=== PATIENT | female | born 1975 | race Hispanic/Latino ===

== ENCOUNTER 2021-06-26 10:41 | Emergency (ER) | payer BC ==
[~2021-06-26] VITALS: Ht 162.6 cm; Wt 89.8 kg
[2021-06-26 10:52] VITALS: BP 134/78
[2021-06-26] MEDS ORDERED: ACET-66 PO (12:38)
== END 2021-06-26 13:10 | disposition home or self-care (01) ==
LOC: EDH 10:41
DX: M25.531 Pain in right wrist (principal); M25.532 Pain in left wrist; Z86.718 Personal history of other venous thrombosis and embolism
CPT/HCPCS: 93970

== ENCOUNTER 2023-08-15 06:38 | Day surgery (SDC) | payer BC ==
[2023-08-10 15:22] VITALS: BP 117/74; PULSE 73; RESP 16
[2023-08-10 15:30] LABS: BASOPHILS # (AUTO) 0.05 K/uL (0.00-0.20); BASOPHILS % (AUTO) 0.8 % (0.0-5.0); EOSINOPHILS # (AUTO) 0.18 K/uL (0.00-0.70); EOSINOPHILS % (AUTO) 2.8 % (0.0-8.0); HEMATOCRIT 38.5 % (36-48); IMMATURE GRANULOCYTE ABSOLUTE 0.02 K/uL (0-1); LYMPHOCYTES # (AUTO) 1.4 K/uL (1.0-4.8); LYMPHOCYTES % (AUTO) 20.9 % (21.0-51.0); MEAN CORPUSCULAR HEMOGLOBIN 28.9 pg (27.0-33.0); MEAN CORPUSCULAR HGB CONC 34.8 g/dL (32.0-36.0); MEAN CORPUSCULAR VOLUME 83.2 fL (79-99); MONOCYTES # (AUTO) 0.5 K/uL (0.1-1.0); NEUTROPHILS # (AUTO) 4.4 K/uL (1.8-7.7); NEUTROPHILS % (AUTO) 68.2 % (40.0-77.0); PLATELET COUNT (AUTO) 289 K/uL (130-400); RED BLOOD CELL COUNT(AUTO) 4.63 MIL/uL (4.00-5.50); WHITE BLOOD COUNT (AUTO) 6.5 K/uL (4.8-10.8)
[2023-08-10 15:40] LABS: POTASSIUM 3.2 mmol/L (3.5-5.1)
[2023-08-10 15:42] LABS: INR <= 0.93 (0.85-1.15); PROTHROMBIN TIME 10.4 SEC (9.6-11.6)
[2023-08-10 15:43] LABS: PARTIAL THROMBOPLASTIN TIME 29.2 SEC (26.3-35.5)
[~2023-08-15] VITALS: Ht 162.6 cm; Wt 84.3 kg
[2023-08-15] VITALS (16 sets, daily range): BP systolic 97–124; BP diastolic 39–79; PULSE 51–93; RESP 11–17
[~2023-08-15 06:38] MED LIST: CALC-190 PO; CHLO25TA3 PO; LACTATED RINGERS 1000ML 1,000 ML IV SCH; LETR2.5T7 PO; LEVO150T11 PO; LISI20TA24 PO; LORA10TA7 PO
[2023-08-15] MEDS ORDERED: CEFAZOLIN SODIUM 2 GM VIAL ONE (06:43)
[2023-08-15] MEDS ORDERED: MIDAZOLAM HCL 1 MG/ML 2ML VIAL ONE (06:58)
[2023-08-15] MEDS ORDERED: ONDANSETRON 4MG INJ ONE (06:58)
[2023-08-15] MEDS ORDERED: PROPOFOL 10 MG/ML 20ML VIAL IV ONE (06:58)
[2023-08-15] MEDS ORDERED: ROCURONIUM BROMIDE 10MG/1ML 5ML VL ONE (06:59)
[2023-08-15] MEDS ORDERED: FENTANYL CITRATE PF 50 MCG/1 ML 2ML VIAL ONE ×2 (06:59→07:45)
[2023-08-15] MEDS ORDERED: LIDOCAINE HCL 1% 20 ML VIAL ONE (07:27)
[2023-08-15] MEDS: CEFAZOLIN SODIUM 1 GM VIAL IVPB PRN (07:40)
[2023-08-15] MEDS: BUPIVACAINE/PF 0.25% 30ML VIAL IJ ONE (07:47)
[2023-08-15] MEDS ORDERED: DOCU-116 PO (08:00)
[2023-08-15] MEDS ORDERED: TRAM50TA4 PO (08:00)
[2023-08-15] MEDS: KETOROLAC 30MG VIAL (30MG/ML) ONE (08:50)
[2023-08-15] MEDS: LACTATED RINGERS 1000ML 1,000 ML IV ONE (09:59)
== END 2023-08-15 10:00 | disposition home or self-care (01) ==
LOC: DAH 06:38
PROVIDERS: ATTEND Surgery
DX: Z45.2 Encounter for adjustment and management of vascular access device (principal); C50.112 Malignant neoplasm of central portion of left female breast; E03.9 Hypothyroidism, unspecified; M06.9 Rheumatoid arthritis, unspecified; R53.82 Chronic fatigue, unspecified; E78.00 Pure hypercholesterolemia, unspecified; I10 Essential (primary) hypertension; E06.3 Autoimmune thyroiditis; E55.9 Vitamin D deficiency, unspecified; Z17.0 Estrogen receptor positive status [ER+]; Z13.71 Encounter for nonprocreative screening for genetic disease carrier status; Z51.11 Encounter for antineoplastic chemotherapy; Z80.0 Family history of malignant neoplasm of digestive organs; Z86.718 Personal history of other venous thrombosis and embolism; Z87.891 Personal history of nicotine dependence; Z79.890 Hormone replacement therapy; Z79.899 Other long term (current) drug therapy; Z98.890 Other specified postprocedural states
CPT/HCPCS: 36590; 80048; 85025; 85610; 85730; 86850; 86900; 86901; 81025; 36415; A6260; A4663; J7030; A4452; J7120; J3010 ×2; J0665; J3490; J2250; J2704; J2405; J1885; J0690; A4930 ×3; A4215; A4223; A4213; A4222; A4221; A4216; A4600

== ENCOUNTER → 2024-12-23 | Emergency (ER) | payer BC ==
[~2024-12-23] VITALS: Ht 162.6 cm; Wt 90.7 kg
[~2024-12-23] MED LIST changes: +DOCU-116 PO; -LACTATED RINGERS 1000ML 1,000 ML IV SCH; +TRAM50TA4 PO
[2024-12-23 14:05] LABS: IMMATURE GRANULOCYTE ABSOLUTE 0.02 K/uL (0-1); NUCLEATED RED BLOOD CELLS 0.0 % (0.0-0.19); PLATELET COUNT (AUTO) 275 K/uL (130-400); RED BLOOD CELL COUNT(AUTO) 5.13 MIL/uL (4.00-5.50); RED CELL DISTRIBUTION WIDTH 12.0 % (11.0-15.5); WHITE BLOOD COUNT (AUTO) 4.7 K/uL (4.8-10.8)
[2024-12-23 14:29] LABS: ASPARTATE AMINOTRANSFERASE 16.0 U/L (10-37); CREATININE 1.0 mg/dL (0.5-1.0); GLOMERULAR FILTR. RATE CALC 69.0 mL/min (>90); GLUCOSE,RANDOM 101.0 mg/dL (70-105); SODIUM SERUM 139.0 mmol/L (136-145); TOTAL PROTEIN, SERUM 7.2 g/dL (6.0-8.3); UREA NITROGEN, BLOOD 14.0 mg/dL (7-18)
--- NOTE | 2024-12-23 14:38 | HMCIMG ---
EXAM: CR Chest, 1 View. CLINICAL HISTORY: Shortness of breath COMPARISON: None provided. FINDINGS: LUNGS: The lungs show no infiltrate or other acute finding. PLEURAL SPACES: No evidence of pleural effusion or pneumothorax. MEDIASTINUM: The cardiomediastinal silhouette is within normal limits. BONES: No acute osseous abnormality. IMPRESSION: No acute cardiopulmonary pathology is evident. /[place]
[2024-12-23 14:44] LABS: AMPHET/METH SCREEN,URINE NEGATIVE (NEGATIVE); BARBITURATE SCREEN, URINE POSITIVE (NEGATIVE); CANNABINOID SCREEN,URINE NEGATIVE (NEGATIVE); COCAINE SCREEN,URINE NEGATIVE (NEGATIVE)
[2024-12-23 15:32] VITALS: BP 145/72; PULSE 82; RESP 18; TEMP 97.7; O2SAT 98
--- NOTE | 2024-12-23 15:34 | ERN ---
General Chief Complaint: Palpitations Stated Complaint: PALPITATION, ELEVATE BP Time Seen by MD: 13:32 History of Present Illness Initial Comments 49-year-old female came in for palpitation. Patient otherwise has no concerns. Allergies: Coded Allergies: No Known Allergies (Unverified Allergy, Unknown, 06/26/21) Home Meds Active Scripts Docusate Sodium (Colace) 100 Mg Capsule, 100 MG PO BID, #30 CAP 0 Refills Prov:IMANI MCDONNELL MD 08/15/23 Tramadol Hcl (Tramadol HCl) 50 Mg Tablet, 50 MG PO Q6HPRN PRN for PAIN, #10 TAB 0 Refills Prov:IMANI MCDONNELL MD 08/15/23 Reported Medications Calcium Carbonate/Vitamin D3 (Calcium + Vitamin D Tablet) 600 Mg Calcium-5 Mcg (200 Unit) Tablet, 1 EACH PO DAILY, TAB 08/10/23 Loratadine (Loratadine) 10 Mg Tablet, 10 MG PO DAILY, TAB 01/13/23 Letrozole (Letrozole) 2.5 Mg Tablet, 2.5 MG PO HS, TAB 01/13/23 Lisinopril (Lisinopril) 20 Mg Tablet, 20 MG PO DAILY, TAB 01/13/23 Chlorthalidone (Chlorthalidone) 25 Mg Tablet, 25 MG PO DAILY, TAB 01/13/23 Levothyroxine Sodium (Levothyroxine Sodium) 150 Mcg Tablet, 150 MCG PO DAILYBKFST, TAB 01/13/23 Past Medical History Past Medical History: DVT, Hypertension, Other Medical History Other: THYROID, HX OF BREAST CA Past Surgical History: Hysterectomy Surgical History Other: LEFT LUMPECTOMY ROS Dictation Palpitation Physical Exam General Appearance: (+) no apparent distress Neck: (+) normal inspection, (+) supple Respiratory: (+) chest non-tender, (+) lungs clear Heart: (+) regular, (+) no gallop Vascular: (+) normal peripheral pulse Gastrointestinal: (+) soft, (+) non-tender Results Laboratory and Microbiology Lab and Micro Result Laboratory Tests Test 12/23/24 13:43 12/23/24 14:18 White Blood Count 4.7 K/uL (4.8-10.8) L Red Blood Count 5.13 MIL/uL (4.00-5.50) Hemoglobin 14.5 g/dL (12.0-16.0) Hematocrit 42.2 % (36-48) Mean Corpuscular Volume 82.3 fL (79-99) Mean Corpuscular Hemoglobin 28.3 pg (27.0-33.0) Mean Corpuscular Hemoglobin Concent 34.4 g/dL (32.0-36.0) Red Cell Distribution Width 12.0 % (11.0-15.5) Platelet Count 275 K/uL (130-400) Mean Platelet Volume 9.4 fL (7.5-10.5) Immature Granulocyte % (Auto) 0.4 % (0-1) Neutrophils (%) (Auto) 68.6 % (40.0-77.0) Lymphocytes (%) (Auto) 20.1 % (21.0-51.0) L Monocytes (%) (Auto) 7.4 % (3.0-13.0) Eosinophils (%) (Auto) 2.7 % (0.0-8.0) Basophils (%) (Auto) 0.8 % (0.0-5.0) Neutrophils # (Auto) 3.2 K/uL (1.8-7.7) Lymphocytes # (Auto) 1.0 K/uL (1.0-4.8) Monocytes # (Auto) 0.4 K/uL (0.1-1.0) Eosinophils # (Auto) 0.13 K/uL (0.00-0.70) Basophils # (Auto) 0.04 K/uL (0.00-0.20) Absolute Immature Granulocyte (auto 0.02 K/uL (0-1) Nucleated Red Blood Cells 0.0 % (0.0-0.19) Sodium Level 139 mmol/L (136-145) Potassium Level 3.7 mmol/L (3.5-5.1) Chloride Level 101 mmol/L (101-111) Carbon Dioxide Level 30 mmol/L (21-32) Blood Urea Nitrogen 14 mg/dL (7-18) Creatinine 1.0 mg/dL (0.5-1.0) Glomerular Filtration Rate Calc 69 mL/min (>90) Random Glucose 101 mg/dL (70-105) Total Calcium 9.2 mg/dL (8.5-10.1) Total Bilirubin 0.3 mg/dL (0.2-1.0) Direct Bilirubin 0.1 mg/dL (0.0-0.3) Aspartate Amino Transf (AST/SGOT) 16 U/L (10-37) Alanine Aminotransferase (ALT/SGPT) 22 U/L (12-78) Alkaline Phosphatase 58 U/L (50-136) Troponin I High Sensitivity 4 ng/L (4-50) Total Protein 7.2 g/dL (6.0-8.3) Albumin 3.8 g/dL (3.5-5.0) Urine Opiates Screen NEGATIVE (NEGATIVE) Urine Barbiturates Screen POSITIVE (NEGATIVE) H Urine Phencyclidine Screen NEGATIVE (NEGATIVE) Urine Amphetamines Screen NEGATIVE (NEGATIVE) Urine Benzodiazepines Screen NEGATIVE (NEGATIVE) Urine Cocaine Screen NEGATIVE (NEGATIVE) Urine Marijuana (THC) Screen NEGATIVE (NEGATIVE) MDM MDM: Differential diagnosis: Rationale: Tests considered and ordered secondary to shared decision making include: Previous outside records reviewed: Old ER visits. Risk of complication and/or morbidity or mortality of patient management: None Medications-Per medication reconciliation Need for hospitalization: Patient does not meet criteria for hospitalization. Need for emergency major/minor surgery: No There are no social concerns with this patient. Prescription drug management Prescriptions will include symptomatic care Patient's prior external medical records from other ER visits were reviewed by me as indicated. Prior testing and results from previous visits were reviewed. Prior tests were taken into account with medical decision making and resource utilization, independent historian/historians were used to obtain complete medical history. I independently interpreted the test that were performed, results were reviewed by me and considered findings on radiology if ordered. Medical management and examination interpretation discussions were had by me with other qualified healthcare professionals as indicated for the patient's care. ED Course Orders Procedure Category Date Status Time 12 Lead Ekg Tracing- EKG 12/23/24 Logged Technical 13:33 Cbc With Differential LAB 12/23/24 Complete 13:33 Basic Metabolic Panel LAB 12/23/24 Complete 13:33 Hepatic Function Panel LAB 12/23/24 Complete 13:33 Drug Screen Urine LAB 12/23/24 Complete 13:33 Troponin I High LAB 12/23/24 Complete Sensitivity 13:33 Chest 1vw RAD 12/23/24 Resulted 13:33 Vital Signs Date Time Temp Pulse Resp B/P (MAP) Pulse Ox O2 Delivery O2 Flow Rate FiO2 12/23/24 13:16 98.4 77 16 160/97 99 Room Air 0 DX & DISP Disposition: Discharge Departure Impression: Primary Impression: Palpitation Condition: Stable Referrals: ISAIAS ZARATE (PCP) UTE MCMAHON MD, USMAN I MD Dec 23, 2024 15:34
--- NOTE | 2024-12-24 07:02 | EKG ---
[facility] Test Date: 2024-12-23 Test Time: 12:57:12 Pat Name: SANDRA IBRAHIM Department: [facility] Room: Gender: F Checker/Stocker: [birth year] : 1975 Requested By: ANDREW JOY Order Number: [id number] Reading MD: Arvind Deleon Measurements Intervals [place] Rate: 71 P: 17 RI: 142 QRS: 3 QRSD: 78 T: 19 QT: 401 QTc: 434 Interpretive Statements Sinus rhythm Low voltage, precordial leads No previous ECG available for comparison Electronically Signed On 12-24-2024 17:23:34 CDT by Arvind Deleon Please click the below link to view image of tracing.
== END ==
LOC: EDH 13:15
DX: R00.2 Palpitations (principal); I10 Essential (primary) hypertension; Z79.811 Long term (current) use of aromatase inhibitors; Z79.899 Other long term (current) drug therapy; Z85.3 Personal history of malignant neoplasm of breast; Z86.718 Personal history of other venous thrombosis and embolism; Z90.710 Acquired absence of both cervix and uterus
CPT/HCPCS: 36415; 71045; 80048; 80076; 80305; 84484; 85025; 93005; 99284